=== PATIENT | male | born 1985 | race African-American/Black ===

== ENCOUNTER 2016-12-31 14:32 | Emergency (ER) | payer OTHER ==
[~2016-12-31 14:32] MED LIST: FLAGYL PO; IMODIUM2 MG PO; KEPPRA500 M2 PO; NO MEDICATIONS
== END 2016-12-31 14:43 | disposition home or self-care (01) ==
LOC: CFTX 14:32
DX: S61.210A Laceration without foreign body of right index finger without damage to nail, initial encounter (principal); Z23 Encounter for immunization; I25.2 Old myocardial infarction; F17.210 Nicotine dependence, cigarettes, uncomplicated; W26.0XXA Contact with knife, initial encounter; Y92.009 Unspecified place in unspecified non-institutional (private) residence as the place of occurrence of the external cause
CPT/HCPCS: 29130; 90471; 90715; 99283